=== PATIENT | male | born 1970 | race Caucasian/White ===

== ENCOUNTER 2019-11-05 15:10 | Emergency (ER) | payer MEDICAID ==
[~2019-11-05] VITALS: Ht 185.4 cm; Wt 83.9 kg
[2019-11-05 15:11] VITALS: BP 110/78
--- NOTE | 2019-11-05 15:20 | NUR ---
49 YO MALE CO CHEST PAIN SINCE TODAY. PT STATES THAT IT FEELS LIKE SOMEONE IS PUNCHING HIN IN THE CHEST. PT STATES PAIN IS 9/10 SHARP STABBING PAIN. PT WAS GIVEN 81MG ASA AND NITRO EN ROUTE TO THE ER. PT IS CONNECTED TO THE MONITOR AT THIS TIME. PMH: GLADIS SALAZAR
[2019-11-05] MEDS ORDERED: CLOPIDOGREL 75 MG TAB PO ONE (15:40)
--- NOTE | 2019-11-05 15:46 | NUR ---
RAD AT BEDSIDE
[2019-11-05 16:38] LABS: BASOPHILS % (AUTO) 0.7 % (0.0-2.0); EOSINOPHILS # (AUTO) 0.2 K/uL (0-0.4); EOSINOPHILS % (AUTO) 3.7 % (0.0-4.0); HEMATOCRIT 37.1 % (36-52); HEMOGLOBIN 11.7 g/dL (12.0-18.0); LYMPHOCYTES # (AUTO) 1.1 K/uL (2.0-11.5); LYMPHOCYTES % (AUTO) 21.2 % (20.5-51.1); MEAN CORPUSCULAR HEMOGLOBIN 24 pg (27-31); MEAN CORPUSCULAR HGB CONC 32 g/dL (33-37); MEAN CORPUSCULAR VOLUME 77.1 fL (80-94); MONOCYTES # (AUTO) 0.7 K/uL (0.8-1.0); NEUTROPHILS % (AUTO) 59.4 % (42.2-75.2); PLATELET COUNT (AUTO) 328 K/uL (140-450); RED BLOOD CELL COUNT(AUTO) 4.82 MIL/uL (4.20-6.10)
[2019-11-05 17:02] LABS: ALBUMIN 3.9 g/dL (3.4-5.0); ANION GAP 15.2 (8-16); CARBON DIOXIDE 23.1 mmol/L (21-32); CREATININE 0.8 mg/dL (0.6-1.3); POTASSIUM 4.3 mmol/L (3.5-5.1); TOTAL BILIRUBIN 0.3 mg/dL (0.0-1.0)
--- NOTE | 2019-11-05 17:15 | NUR ---
called house sup to request a bus pass for pt. called fns and got a homeless meal bag for pt.
[2019-11-05 17:16] VITALS: BP 112/81
--- NOTE | 2019-11-05 17:18 | NUR ---
Patient discharged with v/s stable. Written and verbal after care instructions given and explained. Patient verbalized understanding. Ambulatory with steady gait. All questions addressed prior to discharge. Advised to follow up with PMD.
== END 2019-11-05 17:18 | disposition home or self-care (01) ==
LOC: MED 15:10
DX: R07.9 Chest pain, unspecified (principal); R51 Headache; H57.89 Other specified disorders of eye and adnexa; I51.9 Heart disease, unspecified; Z86.73 Personal history of transient ischemic attack (TIA), and cerebral infarction without residual deficits; Z88.8 Allergy status to other drugs, medicaments and biological substances; Z88.6 Allergy status to analgesic agent
CPT/HCPCS: 36415; 71045; 80053; 84484; 85025; 93005; 99285; Q0092